=== PATIENT | male | born 1945 | race Asian ===

== ENCOUNTER 2020-10-03 21:42 | Inpatient (IN) | payer OTHER ==
[~2020-10-03] VITALS: Ht 182.9 cm; Wt 116.9 kg
--- NOTE | 2020-10-03 21:54 | NUR ---
PATIENT LYNETTE FROM THE ME. PATIENT REPORTS HE HAS BEEN HAVING SOME EPISODES OF SYNCOPE AT HOME OVER THE "LAST COUPLE DAYS". PER EMS PATIENT HAS BEEN IN NORMAL SINUS RHYTHM AND AT TIME IN 2 DEGREE. PATIENT REPORTS HEART RATE DROPS INTO THE 40S PER [facility], BUT FOR EMS HIS RATE HAS BEEN 70-80. PATIENT DENIES AND PAIN WITH THESE EPISODES.
[2020-10-03] MEDS ORDERED: ACETAMINOPHEN 325 MG TABLET PO PRN (22:30)
[2020-10-03] MEDS ORDERED: ONDANSETRON ODT 4 MG PO PRN (22:30)
[2020-10-03] MEDS ORDERED: ONDANSETRON 2MG/ML, 2ML IVPush PRN (22:30)
[2020-10-03] MEDS: LACTATED RINGERS 1,000 ML IV SCH (22:45)
--- NOTE | 2020-10-03 22:46 | NUR ---
PATIENT MEDICATED PER [facility]. NO OTHER NEEDS AT THIS TIME.
--- NOTE | 2020-10-03 22:47 | NUR ---
ATTEMPTED TO CALL REPORT TO SAMMI Bueno.
[2020-10-03 22:57] LABS: FREE T4 (FREE THYROXINE) 1.19 ng/dL (0.76-1.46); TROPONIN I < 0.015 ng/mL (0.000-0.045)
[2020-10-03] MEDS ORDERED: PLEASE ENTER ALLERGIES MC SCH (23:00)
--- NOTE | 2020-10-03 23:07 | NUR ---
GAVE REPORT TO SAMMI, PATIENT RTG
--- NOTE | 2020-10-03 23:30 | NUR ---
Patient transfer to floor via gurney. Patientgiven discharge instructions and they have confirmed that they understand the instructions. Patient ambulatory with steady gait. NAD, all questions answered appropriately, denies additional needs at this time. No personal belongings left in room after discharge.
[2020-10-03 23:43] VITALS: BP 130/81
[2020-10-04] VITALS (7 sets, daily range): BP systolic 115–126; BP diastolic 76–85
[2020-10-04] MEDS: FLECAINIDE 50MG TABLET PO SCH ×2 (01:19→11:24)
[2020-10-04] MEDS ORDERED: SIMV20TA19 PO (04:14)
[2020-10-04] MEDS ORDERED: POTA10TA PO (04:14)
[2020-10-04] MEDS ORDERED: RIVA20TA PO (04:14)
[2020-10-04] MEDS ORDERED: CHLO25TA PO (04:14)
[2020-10-04] MEDS ORDERED: VENL100T PO (04:14)
[2020-10-04] MEDS ORDERED: BISO5TAB8 PO (04:14)
[2020-10-04] MEDS ORDERED: CARB1DRO8 OP (04:14)
[2020-10-04] MEDS ORDERED: FLEC50TA25 PO (04:14)
[2020-10-04] MEDS ORDERED: TAMS-11 PO (04:14)
[2020-10-04 05:39] LABS: BASOPHILS % (AUTO) 1 % (0-1); EOSINOPHILS % (AUTO) 8 % (1-7); LYMPHOCYTES % (AUTO) 25 % (22-44); MEAN CORPUSCULAR HEMOGLOBIN 32.9 pg (27.5-34.5); MEAN CORPUSCULAR HGB CONC 34.2 g/dL (33.2-36.2); MEAN PLATELET VOLUME 7.2 fL (7.4-10.4); MONOCYTES % (AUTO) 8 % (2-9); NEUTROPHILS % (AUTO) 59 % (42-75); PLATELET COUNT 305 x10^3/uL (130-400); RED BLOOD COUNT 4.22 x10^6/uL (4.38-5.82); RED CELL DISTRIBUTION WIDTH 13.5 % (9.4-14.8)
[2020-10-04 05:50] LABS: CHLORIDE 106 mmol/L (98-107)
[2020-10-04 05:54] LABS: ANION GAP 2 mmol/L (5-15); CALCIUM 8.6 mg/dL (8.5-10.1); CREATININE 1.21 mg/dL (0.7-1.3)
[2020-10-04] MEDS: LACTATED RINGERS 1,000 ML IV SCH ×2 (11:22→20:42)
[2020-10-04] MEDS: RIVAROXABAN 20 MG TABLET PO SCH (17:00)
[2020-10-04] MEDS: METOPROLOL TARTRATE 50 MG TAB PO SCH (18:06)
[2020-10-05 01:08] VITALS: BP 129/85
[2020-10-05] MEDS: LACTATED RINGERS 1,000 ML IV SCH ×3 (04:23→23:38)
[2020-10-05] MEDS: METOPROLOL TARTRATE 50 MG TAB PO SCH ×2 (04:23→16:51)
[2020-10-05 07:55] VITALS: BP 141/76
[2020-10-05] MEDS ORDERED: REGADENOSON 0.4 MG/5 ML SYRINGE ONE (10:19)
[2020-10-05 13:10] VITALS: BP 132/82
[2020-10-05] MEDS: RIVAROXABAN 20 MG TABLET PO SCH (16:50)
[2020-10-05] MEDS ORDERED: METO50TA82 PO (17:53)
[2020-10-05 19:32] VITALS: BP 145/95
[2020-10-06 02:13] VITALS: BP 158/95
[2020-10-06] MEDS: METOPROLOL TARTRATE 50 MG TAB PO SCH (05:17)
[2020-10-06 07:22] VITALS: BP 125/70
[2020-10-06] MEDS: LACTATED RINGERS 1,000 ML IV SCH (07:46)
== END 2020-10-06 12:12 | disposition home or self-care (01) | DRG 309 ==
LOC: SUATTDRO 22:07 → ED 22:12 → EDIP 22:51 → 4EST 23:32
PROVIDERS: ADMIT Student in an Organized Health Care Education/Training Program; ATTEND Family Medicine
DX: I48.21 Permanent atrial fibrillation (principal); D68.59 Other primary thrombophilia; I48.92 Unspecified atrial flutter; I48.91 Unspecified atrial fibrillation; Z79.01 Long term (current) use of anticoagulants; E78.5 Hyperlipidemia, unspecified; I10 Essential (primary) hypertension; I27.20 Pulmonary hypertension, unspecified; N40.0 Benign prostatic hyperplasia without lower urinary tract symptoms; R55 Syncope and collapse; R00.0 Tachycardia, unspecified; Z88.5 Allergy status to narcotic agent; Z79.899 Other long term (current) drug therapy; Z91.011 Allergy to milk products
CPT/HCPCS: 36415; 93017; 99285; C8929; 71045; 78452; 80048; 83735; 84100; 84439; 84443; 84484; 85025; 93005; G0378; J2785; Q9957; A9502; J7120